=== PATIENT | female | born 1945 | race Two or more races ===

== ENCOUNTER 2024-05-01 06:03 | Day surgery (SDC) | payer BC ==
[~2024-05-01] VITALS: Ht 152.4 cm; Wt 68.0 kg
[~2024-05-01 06:03] MED LIST: BACL10TA PO; DOCU-265 PO; DOXY-267 PO; FER325T PO; FURO40TA4 PO; HYDR1TAB97 PO; LOS25T PO; LOVA20TA4 PO; MELO7.5T7 PO; MEMA1TAB3 PO; POTA-36 PO; QUET50TA27 PO
[2024-05-01] MEDS ORDERED: PROPOFOL 10 MG/ML 20 ML IV ONE (06:59)
[2024-05-01] MEDS ORDERED: SODIUM CHLORIDE LOCK 10 ML ONE (06:59)
[2024-05-01] MEDS ORDERED: KETAMINE 50mg/ML 1ml syringe ONE (06:59)
[2024-05-01] MEDS ORDERED: fentaNYL CITRATE 100 MCG/2 ML VL ONE (06:59)
[2024-05-01] MEDS ORDERED: MIDAZOLAM HCL 2MG/2ML 2ml VIAL (1mg/ml) ONE (06:59)
[2024-05-01] MEDS ORDERED: ONDANSETRON HCL 4 MG/2 ML VIAL ONE (06:59)
[2024-05-01] MEDS ORDERED: LIDOCAINE 1% INJ PF 5ML AMP ONE (06:59)
[2024-05-01] MEDS ORDERED: MORPHINE SULFATE INJ 2 MG/ml SYRG IV PRN (07:15)
[2024-05-01] MEDS ORDERED: HYDROmorphone HCL 2 MG/ML VL/or syr IV PRN (07:15)
[2024-05-01] MEDS ORDERED: METOCLOPRAMIDE HCL 5MG/ml INJ 2ml VIAL IV ONE (07:15)
[2024-05-01] MEDS ORDERED: VANCOMYCIN HCL 1000 MG VL ONE (07:24)
[2024-05-01] MEDS: LIDOCAINE 1% HCL (LOCAL ANESTH.) INJ 20ML MDV ONE (08:05)
[2024-05-01] MEDS: BUPIVACAINE HCL 0.25% P/F 10 ML VIAL ONE (08:05)
[2024-05-01 08:11] VITALS: PULSE 83; RESP 17; TEMP 98.9; O2SAT 94
--- NOTE | 2024-05-01 08:35 | DVHOP2 ---
Operative Report - 2 Report Details Date: 05/01/24 Preop Diagnosis: Left wrist open wound, history of distal radius fracture Postop Diagnosis: as above Surgeon: Shan Mclaughlin MD Build Technician: Chin MATHEW Anesthesiologist: Ha GUTIERREZ Anesthesia: General Implant: Restrata Graft Consent: The patient was informed of the risks and benefits of the procedure. These include but are not limited to complications of anesthesia, postoperative infection, incomplete relief of symptoms, recurrence of symptoms, damage to blood vessels, nerves and tendons, deep venous thrombosis, pulmonary embolism and possible need for repeat surgery in the future. Estimated Blood Loss: 5 cc Indications for Surgery: 79 yo F with hx of ORIF Left distal radius fracture 3 weeks ago; patient has been washing her hand with splint on and incision got wet under the splint creating an opening of wound Name of Procedure Performed Left wrist irrigation and debridement, placement of restrata graft, placement of wound vac Procedure Details Procedure Details: Risks/benefits/options/alternatives were discussed at length with patient and his family. Nonoperative versus operative management was presented to her. Risks include but not exclusive to bleeding, infection, nerve injury, tendon or ligament damage, hardware failure, nonunion, malunion, need for further surgery, amputation, DVT, and . She understood these risks and wished to proceed with surgery. OPERATION: The patient was brought from the coronary care unit nurse unit and placed on the operating table in a supine position and administered general anesthetic. To urniquet was placed around the left upper extremity. Once adequate anesthesia had been obtained, the left upper extremity was prepped and draped in the usual sterile manner. A time out was performed. Incision was then copiously irrigated with normal saline. wound debrided of any loose necrotic tissue. Homeostasis was maintained with electrocautery. Wound irrigated again. Culture x 3 taken. Placement of restrata graft over wound. Prevena vac placed. A large bulky dressing was then applied maintaining the wrist in neutral position. The patient was awakened and taken to the recovery room in good condition. There were no operative complications. The patient tolerated the procedure well. Specimen: culture x 3 Condition Fair Disposition Home SHAN MCLAUGHLIN MD May 01, 2024 08:35
[2024-05-01] MEDS ORDERED: LABETALOL HCL 20 MG/4 ML VL IV ONE (08:39)
[2024-05-01] MEDS: LABETALOL HCL 20 MG/4 ML VL IV ONE (08:42)
[2024-05-01] MEDS: HYDROmorphone HCL 2 MG/ML VL/or syr IV PRN (08:54)
[2024-05-01 09:26] VITALS: BP 177/86; PULSE 76; RESP 12; O2SAT 98
== END 2024-05-01 09:33 | disposition home or self-care (01) ==
LOC: SUR 06:03
PROVIDERS: ATTEND Orthopaedic Surgery Adult Reconstructive Orthopaedic Surgery
DX: S61.502A Unspecified open wound of left wrist, initial encounter (principal); T81.42XA Infection following a procedure, deep incisional surgical site, initial encounter; J43.9 Emphysema, unspecified; E78.5 Hyperlipidemia, unspecified; I12.9 Hypertensive chronic kidney disease with stage 1 through stage 4 chronic kidney disease, or unspecified chronic kidney disease; E11.22 Type 2 diabetes mellitus with diabetic chronic kidney disease; N18.30 Chronic kidney disease, stage 3 unspecified; F32.A Depression, unspecified; Z88.0 Allergy status to penicillin; Z88.6 Allergy status to analgesic agent; Z82.49 Family history of ischemic heart disease and other diseases of the circulatory system; X58.XXXA Exposure to other specified factors, initial encounter; Y93.89 Activity, other specified; Y92.89 Other specified places as the place of occurrence of the external cause; Y99.8 Other external cause status; Z87.891 Personal history of nicotine dependence; Z98.41 Cataract extraction status, right eye
CPT/HCPCS: 15004; 15275; 87070; 87075; 87077; 87186; 87205; A2007; J1171; J2003; J2250; J2405; J2704; J3010; J3370; J3490; J7050